=== PATIENT | female | born 2005 | race Hispanic/Latino ===

== ENCOUNTER 2023-10-07 00:29 | Emergency (ER) | payer OTHER, SELFPAY ==
[2023-10-07] MEDS ORDERED: Ondansetron PF 4 MG/2 ML Vial ONE (01:22)
[2023-10-07 01:26] LABS: #Basophils 0.08 10x3/uL (0.0-0.2); #Eosinphils 0.05 10x3/uL (0.0-0.5); #Monocytes 0.29 10x3/uL (0.0-1.1); %Basophils 1.2 % (0.0-2.0); %Eosinophils 0.7 % (0.0-6.0); %Lymphocytes 14.7 % (18.0-47.0); %Monocytes 4.2 % (0.0-10.0); %Neutrophils 78.8 % (40.0-75.0); Hematocrit 31.6 % (34.9-44.5); Hemoglobin 9.5 g/dL (12.0-15.5); Mean Corpuscular HGB CONC 30.1 g/dL (32.0-36.0); Mean Corpuscular Hemoglobin 18.8 pg (27.0-33.0); Mean Corpuscular Volume 62.6 fl (81.6-98.3); Mean Platelet Volume 10.3 fl (7.4-10.4); Platelet Count 412 10x3/uL (150-450); RBC Distribution Width 20.8 % (11.5-14.5); Red Blood Cell (RBC) Count 5.05 10x6/uL (3.90-5.03); White Blood Cell (WBC) Count 6.9 10x3/uL (3.5-10.5)
[2023-10-07 01:42] LABS: Acetaminophen Less than 10 mcg/mL (10.0-30.0); Alcohol 234.9 mg/dL (Less than 10); Salicylate Less than 8.0 mg/dL (15.0-30.0)
[2023-10-07 01:43] LABS: ALT (SGPT) 24 U/L (8-55); AST (SGOT) 23 U/L (5-34); Albumin 4.3 g/dL (3.5-5.0); Alkaline Phosphatase 73 U/L (40-100); Anion Gap 16 mmol/L (10-20); BHCG - Serum Negative (NEGATIVE); BUN (Urea Nitrogen) 6 mg/dL (7.0-18.7); Bilirubin, Total 0.2 mg/dL (0.2-1.2); Calc. Creatinine Clearance 0 mL/min (70-130); Calcium 8.9 mg/dL (7.8-10.44); Carbon Dioxide 21 mmol/L (22-29); Chloride 105 mmol/L (98-107); Estimated GFR 110; Globulin 2.9 g/dL (2.4-3.5); Glucose 110 mg/dL (70-105); Potassium 3.9 mmol/L (3.5-5.1); Pregs Control Background? CLEAR/WHITE (CLR/WHITE); Pregs Control Bar Appear? YES (CONTROL BAR); Protein, Total 7.2 g/dL (6.0-8.3); Sodium 138 mmol/L (136-145)
[2023-10-07 01:50] LABS: Anisocytosis SLIGHT = 6-15 cells (100X) (0-5/hpf); Elliptocytes SLIGHT = 2-5 cells (100X) (0-1/hpf); Hypochromia MODERATE=16-30 cells (100X) (0-5/hpf); Microcytosis MODERATE=15-30 cells (100X) (0-5/hpf)
[2023-10-07 01:51] LABS: Platelet Adequacy Comment Appears Adequate
== END 2023-10-07 02:58 | disposition home or self-care (01) ==
LOC: CSHERS 00:29
DX: F10.129 Alcohol abuse with intoxication, unspecified (principal); Y90.8 Blood alcohol level of 240 mg/100 ml or more
CPT/HCPCS: 80053; 80307; 84703; 85025; 85060; 96361; 96374; J2405

== ENCOUNTER 2025-02-21 17:03 | Emergency (ER) | payer OTHER, SELFPAY ==
[2025-02-21] MEDS ORDERED: Ibuprofen 800 MG TAB ONE (17:45)
== END 2025-02-21 18:46 | disposition home or self-care (01) ==
LOC: CSHERS 17:03
DX: S80.12XA Contusion of left lower leg, initial encounter (principal); S50.12XA Contusion of left forearm, initial encounter; V89.2XXA Person injured in unspecified motor-vehicle accident, traffic, initial encounter
CPT/HCPCS: 70450; 71250; 72125; 74177